=== PATIENT | female | born 1955 | race Caucasian/White ===

== ENCOUNTER → 2018-02-04 | Outpatient (CLI) | payer OTHER ==
[~2018-02-04] MED LIST: AZIT500T5 PO; HYDR-3237 PO; METH10TA6 PO
== END | disposition home or self-care (01) ==
LOC: ROC 08:39
PROVIDERS: ATTEND Radiology Radiation Oncology
DX: Z02.9 Encounter for administrative examinations, unspecified (principal)

== ENCOUNTER → 2018-02-11 | Outpatient (CLI) | payer OTHER ==
[~2018-02-11] MED LIST changes: +GADOBUTROL 10 MMOL/10 ML PFS ONE
== END | disposition home or self-care (01) ==
LOC: CFH 11:33
PROVIDERS: ATTEND Radiology Radiation Oncology
DX: G93.89 Other specified disorders of brain (principal)
CPT/HCPCS: 70553; A9585

== ENCOUNTER → 2018-02-14 | Outpatient (CLI) | payer OTHER ==
[~2018-02-14] MED LIST changes: -GADOBUTROL 10 MMOL/10 ML PFS ONE
== END | disposition home or self-care (01) ==
LOC: ROC 08:52
PROVIDERS: ATTEND Radiology Radiation Oncology
DX: Z08 Encounter for follow-up examination after completed treatment for malignant neoplasm (principal); C79.31 Secondary malignant neoplasm of brain; Z85.118 Personal history of other malignant neoplasm of bronchus and lung; Z88.0 Allergy status to penicillin
CPT/HCPCS: 99213; G0463

== ENCOUNTER → 2018-03-14 | Outpatient (CLI) | payer OTHER | END | disposition home or self-care (01) | LOC: ROC 08:50 | PROVIDERS: ATTEND Radiology Radiation Oncology | DX: Z08 Encounter for follow-up examination after completed treatment for malignant neoplasm (principal); C79.31 Secondary malignant neoplasm of brain; Z85.118 Personal history of other malignant neoplasm of bronchus and lung | CPT/HCPCS: 99213; G0463 ==

== ENCOUNTER 2018-06-02 08:40 | Outpatient (CLI) | payer OTHER ==
[~2018-06-02 08:40] MED LIST changes: +DEXA4TAB66 PO; +GABA300C10 PO; +LEVE500T53 PO; +OXYC-302 PO
== END 2018-06-02 23:59 | disposition home or self-care (01) ==
LOC: ROC 08:40
PROVIDERS: ATTEND Radiology Radiation Oncology
DX: Z08 Encounter for follow-up examination after completed treatment for malignant neoplasm (principal); C79.31 Secondary malignant neoplasm of brain
CPT/HCPCS: 99212; G0463

== ENCOUNTER → 2018-07-07 | Outpatient (CLI) | payer OTHER | END | disposition home or self-care (01) | LOC: PETCFH 08:14 | PROVIDERS: ATTEND Specialist | DX: C34.91 Malignant neoplasm of unspecified part of right bronchus or lung (principal) | CPT/HCPCS: 78815; A9552 ==

== ENCOUNTER → 2018-07-14 | Outpatient (CLI) | payer OTHER ==
[~2018-07-14] MED LIST changes: +GADOBUTROL 7.5 MMOL/7.5 ML PFS ONE
== END | disposition home or self-care (01) ==
LOC: CFH 09:23
PROVIDERS: ATTEND Neurological Surgery
DX: C79.31 Secondary malignant neoplasm of brain (principal); J34.89 Other specified disorders of nose and nasal sinuses
CPT/HCPCS: 70553; 82565; A9585

== ENCOUNTER → 2018-07-21 | Outpatient (CLI) | payer OTHER ==
[~2018-07-21] MED LIST changes: -GADOBUTROL 7.5 MMOL/7.5 ML PFS ONE
== END | disposition home or self-care (01) ==
LOC: ROC 07-11 09:45
PROVIDERS: ATTEND Radiology Radiation Oncology
DX: C34.91 Malignant neoplasm of unspecified part of right bronchus or lung (principal); C79.31 Secondary malignant neoplasm of brain
CPT/HCPCS: 99212; G0463

== ENCOUNTER 2018-11-04 07:31 | Outpatient (CLI) | payer OTHER | END 2018-11-04 23:59 | disposition home or self-care (01) | LOC: ROC 07:31 | PROVIDERS: ATTEND Radiology Radiation Oncology | DX: C79.31 Secondary malignant neoplasm of brain (principal) | CPT/HCPCS: 99213; G0463 ==

== ENCOUNTER 2019-01-23 09:09 | Outpatient (CLI) | payer OTHER | END 2019-01-23 23:59 | disposition home or self-care (01) | LOC: ROC 09:09 | PROVIDERS: ATTEND Radiology Radiation Oncology | DX: C79.31 Secondary malignant neoplasm of brain (principal); C34.90 Malignant neoplasm of unspecified part of unspecified bronchus or lung | CPT/HCPCS: 99213; G0463 ==

== ENCOUNTER 2019-04-10 08:41 | Outpatient (CLI) | payer OTHER ==
[~2019-04-10 08:41] MED LIST changes: +AZIT500T10 PO; -AZIT500T5 PO
== END 2019-04-10 23:59 | disposition home or self-care (01) ==
LOC: ROC 08:41 → EDSTATUS 04-14 18:00
PROVIDERS: ATTEND Radiology Radiation Oncology
DX: Z02.9 Encounter for administrative examinations, unspecified (principal)

== ENCOUNTER → 2019-06-12 | Outpatient (CLI) | payer OTHER | END | disposition home or self-care (01) | LOC: ROC 09:10 | PROVIDERS: ATTEND Radiology Radiation Oncology | DX: C34.90 Malignant neoplasm of unspecified part of unspecified bronchus or lung (principal); C79.31 Secondary malignant neoplasm of brain | CPT/HCPCS: 99213; G0463 ==

== ENCOUNTER 2019-08-18 08:37 | Outpatient (CLI) | payer OTHER | END 2019-08-18 23:59 | disposition home or self-care (01) | LOC: ROC 08:37 | PROVIDERS: ATTEND Radiology Radiation Oncology | DX: Z02.9 Encounter for administrative examinations, unspecified (principal) ==

== ENCOUNTER → 2020-04-22 | Outpatient (CLI) | payer MEDICARE | END | disposition home or self-care (01) | LOC: ROC 07:50 | PROVIDERS: ATTEND Radiology Radiation Oncology | DX: Z08 Encounter for follow-up examination after completed treatment for malignant neoplasm (principal); Z85.841 Personal history of malignant neoplasm of brain | CPT/HCPCS: G0463 ==